=== PATIENT | male | born 1940 | race Caucasian/White ===

== ENCOUNTER → 2020-10-09 | Outpatient (CLI) | payer MEDICARE ==
[~2020-10-09] MED LIST: ASPI81CH; CODLIVC; Cayenne450 MG; FISH1000; Garlic Oil1000 MG; NAPR500 PO; Saw Palmetto500 MG; Vitamin C100 M1
== END | disposition home or self-care (01) ==
LOC: LAB 12:05 → LAB SHORT 12:05
DX: C44.329 Squamous cell carcinoma of skin of other parts of face (principal)
CPT/HCPCS: 88305

== ENCOUNTER → 2021-04-17 | Outpatient (CLI) | payer MEDICARE | END | disposition home or self-care (01) | LOC: LAB 12:01 → LAB SHORT 12:01 | DX: C44.222 Squamous cell carcinoma of skin of right ear and external auricular canal (principal) | CPT/HCPCS: 88305 ==

== ENCOUNTER → 2021-08-26 | Outpatient (CLI) | payer MEDICARE | END | disposition home or self-care (01) | LOC: LAB SHORT 08:11 | DX: C44.229 Squamous cell carcinoma of skin of left ear and external auricular canal (principal) | CPT/HCPCS: 88305 ==

== ENCOUNTER → 2022-01-07 | Outpatient (CLI) | payer MEDICARE | END | disposition home or self-care (01) | LOC: PLD 08:27 → LAB SHORT 08:27 | DX: L91.0 Hypertrophic scar (principal) | CPT/HCPCS: 88305 ==

== ENCOUNTER → 2023-03-24 | Outpatient (CLI) | payer MEDICARE | END | disposition home or self-care (01) | LOC: PLD 13:28 → LAB SHORT 13:28 | DX: C44.41 Basal cell carcinoma of skin of scalp and neck (principal); D49.2 Neoplasm of unspecified behavior of bone, soft tissue, and skin | CPT/HCPCS: 88305 ==

== ENCOUNTER → 2023-09-09 | Outpatient (CLI) | payer MEDICARE | LOC: LAB SHORT 12:39 → LAB 12:39 | DX: C44.319 Basal cell carcinoma of skin of other parts of face (principal) | CPT/HCPCS: 88305 ==

== ENCOUNTER → 2023-12-07 | Outpatient (CLI) | payer MEDICARE | LOC: LAB SHORT 12:45 → LAB 12:45 | DX: C44.219 Basal cell carcinoma of skin of left ear and external auricular canal (principal) | CPT/HCPCS: 88305 ==

== ENCOUNTER 2024-12-01 17:48 | Emergency (ER) | payer MEDICARE ==
[~2024-12-01] VITALS: Ht 167.6 cm; Wt 68.0 kg
[~2024-12-01 17:48] MED LIST changes: -Amoxicillin875 MG PO; -LOPE2C PO
[2024-12-01] MEDS ORDERED: Ondansetron HCl 2 MG / ML 2ML Vial IV ONE (19:05)
[2024-12-01] MEDS ORDERED: NS 1,000 ML IV SCH (20:25)
[2024-12-01 20:35] LABS: BASOPHILS ABSOLUTE AUTO 0.01 K/mm3 (0.00-0.23); BASOPHILS PERCENT AUTO 0 % (0-2); EOSINOPHILS ABSOLUTE AUTO 0.05 K/mm3 (0.00-0.68); EOSINOPHILS PERCENT AUTO 0 % (0-6); Hematocrit 40.3 % (37.0-53.0); Hemoglobin 13.6 g/dL (13.5-17.5); IMMATURE GRAN ABSOLUTE AUTO 0.69 K/mm3 (0.00-0.10); IMMATURE GRAN PERCENT AUTO 6 % (0-1); LYMPHOCYTES ABSOLUTE AUTO 1.02 K/mm3 (0.84-5.20); LYMPHOCYTES PERCENT AUTO 9 % (21-46); MONOCYTES ABSOLUTE AUTO 1.96 K/mm3 (0.16-1.47); MONOCYTES PERCENT AUTO 17 % (4-13); Mean Corpuscular HGB 31.1 pg (26.0-34.0); Mean Corpuscular HGB Conc 33.7 g/dL (31.5-36.5); Mean Corpuscular Volume 92 fL (80-100); NEUTROPHILS ABSOLUTE AUTO 7.98 K/mm3 (1.96-9.15); NEUTROPHILS PERCENT AUTO 68 % (41-73); Platelet Count 139 K/mm3 (150-400); RDW Coefficient Variation 13.5 % (11.7-14.2); RDW Standard Deviation 45.1 fL (35.1-46.3); Red Blood Cell Count 4.37 M/mm3 (4.30-5.90); White Blood Cell Count 11.71 K/mm3 (4.00-11.30)
[2024-12-01 20:51] LABS: Source, Urine Voided
[2024-12-01 20:55] LABS: Appearance, Urine Clear (Clear); Bilirubin, Urine Neg (Neg); Blood, Urine 2+ (Neg); Color, Urine Yellow (P-Yellow); Glucose Qualitative, Urine Neg (Neg); Ketones, Urine Neg (Neg); Leukocyte Esterase, Urine Neg (Neg); Nitrite, Urine Neg (Neg); Protein, Urine 2+ (Neg); Urobilinogen, Urine NORM (Normal)
[2024-12-01 21:00] LABS: CORONAVIRUS COVID-19 AG Negative (NEGATIVE); INFLUENZA A AG Negative (NEGATIVE); INFLUENZA B AG Negative (NEGATIVE)
[2024-12-01 21:01] LABS: Amorphous Light (0-Heavy); Bacteria Not Seen /hpf; Mucus Light (0-Heavy); Red Blood Cells, Urine 0-2 /hpf (0-2); Squamous Epithelial Cells Not Seen /hpf (Few); White Blood Cells, Urine Not Seen /hpf (0-5)
[2024-12-01 21:08] LABS: Albumin, Blood 2.8 g/dL (3.4-5.0); Bilirubin, Total 0.6 mg/dL (0.1-1.0); Bun/Creatinine Ratio 26.5 (12.0-20.0); Calcium, Blood 7.1 mg/dL (8.5-10.1); Creatinine, Blood 1.32 mg/dL (0.60-1.20); Globulin, Blood 2.8 g/dL (2.2-4.0); Potassium, Blood 3.4 mmol/L (3.5-5.5); Total Protein, Blood 5.6 g/dL (6.4-8.2)
[2024-12-01] MEDS ORDERED: Amoxicillin 875 MG Tab PO ONE (21:20)
[2024-12-01 22:00] VITALS: BP 134/60
[2024-12-01] MEDS ORDERED: Amoxicillin875 MG PO (22:04)
[2024-12-01] MEDS ORDERED: LOPE2C PO (22:04)
== END 2024-12-01 22:14 | disposition home or self-care (01) ==
LOC: ER 17:48
PROVIDERS: Emergency Medicine
DX: J18.9 Pneumonia, unspecified organism (principal); R19.7 Diarrhea, unspecified; E86.0 Dehydration; Z79.1 Long term (current) use of non-steroidal anti-inflammatories (NSAID); Z79.51 Long term (current) use of inhaled steroids; Z79.899 Other long term (current) drug therapy; Z79.891 Long term (current) use of opiate analgesic; Z79.83 Long term (current) use of bisphosphonates; Z79.84 Long term (current) use of oral hypoglycemic drugs; R50.9 Fever, unspecified
CPT/HCPCS: 71045; 80053; 81001; 83605; 83735; 84484; 85025; 87428-QW; 93005; 93010; 96360; 99285-25; A9270; J2405; J7030

== ENCOUNTER → 2024-12-01 | Outpatient (CLI) | payer MEDICARE ==
[~2024-12-01] MED LIST changes: +Amoxicillin875 MG PO; +LOPE2C PO
[2024-12-01 15:42] LABS: BASOPHILS ABSOLUTE AUTO 0.01 K/mm3 (0.00-0.23); BASOPHILS PERCENT AUTO 0 % (0-2); EOSINOPHILS ABSOLUTE AUTO 0.02 K/mm3 (0.00-0.68); EOSINOPHILS PERCENT AUTO 0 % (0-6); Hematocrit 44.9 % (37.0-53.0); Hemoglobin 15.3 g/dL (13.5-17.5); IMMATURE GRAN ABSOLUTE AUTO 0.82 K/mm3 (0.00-0.10); IMMATURE GRAN PERCENT AUTO 7 % (0-1); LYMPHOCYTES PERCENT AUTO 6 % (21-46); MONOCYTES ABSOLUTE AUTO 1.85 K/mm3 (0.16-1.47); MONOCYTES PERCENT AUTO 16 % (4-13); Mean Corpuscular HGB 30.8 pg (26.0-34.0); Mean Corpuscular HGB Conc 34.1 g/dL (31.5-36.5); Mean Corpuscular Volume 90 fL (80-100); Mean Platelet Volume 10.4 fL (9.1-12.4); NEUTROPHILS ABSOLUTE AUTO 8.39 K/mm3 (1.96-9.15); NEUTROPHILS PERCENT AUTO 71 % (41-73); Platelet Count 208 K/mm3 (150-400); RDW Coefficient Variation 13.4 % (11.7-14.2); RDW Standard Deviation 44.3 fL (35.1-46.3); Red Blood Cell Count 4.97 M/mm3 (4.30-5.90); White Blood Cell Count 11.79 K/mm3 (4.00-11.30)
[2024-12-01 15:51] LABS: Albumin, Blood 3.4 g/dL (3.4-5.0); Albumin/Globulin Ratio 1.1 (0.8-1.8); Bilirubin, Total 0.7 mg/dL (0.1-1.0); Bun/Creatinine Ratio 19.8 (12.0-20.0); Creatinine, Blood 2.12 mg/dL (0.60-1.20); Globulin, Blood 3.2 g/dL (2.2-4.0); Magnesium, Blood 1.7 mg/dL (1.6-2.4); Potassium, Blood 3.3 mmol/L (3.5-5.5); Total Protein, Blood 6.6 g/dL (6.4-8.2)
== END ==
LOC: LAB SHORT 15:34 → LAB 15:34
PROVIDERS: Physician Assistant
DX: R19.7 Diarrhea, unspecified (principal); R50.9 Fever, unspecified
CPT/HCPCS: 80053; 83605; 83735; 85025

== ENCOUNTER 2025-03-22 12:29 | Inpatient (IN) | payer MEDICARE, OTHER ==
[~2025-03-22] VITALS: Ht 167.6 cm; Wt 61.7 kg
[~2025-03-22 12:29] MED LIST changes: +Amoxicillin875 MG PO; +LOPE2C PO
[2025-03-22] MEDS ORDERED: LISINOPRIL-HCT1 EACH PO (12:46)
[2025-03-22] MEDS ORDERED: AMLODIPINE BESYL5 MG PO (12:46)
[2025-03-22] MEDS ORDERED: ROSUVASTATIN CA20 MG PO (12:47)
[2025-03-22 15:29] LABS: Anti-Xa UFH, PHA Monitoring <0.10 IU/mL; Prothrombin Time Results 11.4 Sec (9.7-11.5)
[2025-03-22 15:49] VITALS: BP 168/75
[2025-03-22] MEDS ORDERED: Heparin Sodium,Porcine/0.5 NS 500 ML IV SCH (16:00)
[2025-03-22] MEDS ORDERED: Heparin Sodium 5000 Units/ML 1ML MDV IV ONE (16:00)
[2025-03-22 19:26] VITALS: BP 103/59
[2025-03-22] MEDS ORDERED: Insulin Human Lispro 100 Units/ML 3ML Syringe SC SCH (21:00)
[2025-03-22 23:32] VITALS: BP 117/69
[2025-03-23 01:04] LABS: Hematocrit 46.8 % (37.0-53.0); Hemoglobin 15.6 g/dL (13.5-17.5); Mean Corpuscular HGB Conc 33.3 g/dL (31.5-36.5); Mean Corpuscular Volume 92 fL (80-100); NRBC ABSOLUTE 0.00 K/mm3 (0.00-0.02); NRBC Auto 0.0 /100 WBC (0.0-0.2); Platelet Count 232 K/mm3 (150-400); RDW Coefficient Variation 13.3 % (11.7-14.2); RDW Standard Deviation 44.7 fL (35.1-46.3)
[2025-03-23 01:27] LABS: Alanine Aminotransfer (ALT/SGP 27.0 U/L (12-78); Albumin, Blood 3.6 g/dL (3.4-5.0); Albumin/Globulin Ratio 1.2 (0.8-1.8); Anion Gap 7.0 mmol/L (3-11); Aspartate Aminotrans (AST/SGOT 22.0 U/L (12-37); BAND PERCENT MAN 4 % (0-8); BASOPHILS ABSOLUTE MAN 0.00 K/mm3 (0.00-0.23); BASOPHILS PERCENT MAN 0 % (0-2); Bilirubin, Total 0.5 mg/dL (0.1-1.0); Blood Urea Nitrogen 27.0 mg/dL (8-24); CO2, Blood 29.0 mmol/L (21-32); Calcium, Blood 8.5 mg/dL (8.5-10.1); Chloride, Blood 105.0 mmol/L (98-108); Creatinine, Blood 1.16 mg/dL (0.60-1.20); EOSINOPHILS ABSOLUTE MAN 0.00 K/mm3 (0.00-0.68); EOSINOPHILS PERCENT MAN 0 % (0-6); Globulin, Blood 3.1 g/dL (2.2-4.0); Glucose, Blood 83.0 mg/dL (70-99); LYMPHOCYTES ABSOLUTE MAN 2.16 K/mm3 (0.84-5.20); LYMPHOCYTES PERCENT MAN 42 % (21-46); MONOCYTES ABSOLUTE MAN 0.51 K/mm3 (0.16-1.47); MONOCYTES PERCENT MAN 10 % (4-13); NEUTROPHILS ABSOLUTE MAN 2.47 K/mm3 (1.96-9.15); Potassium, Blood 3.7 mmol/L (3.5-5.5); SEG NEUTROPHILS PERCENT MAN 44 % (41-73); Sodium, Blood 137.0 mmol/L (136-145); Total Protein, Blood 6.7 g/dL (6.4-8.2)
[2025-03-23] MEDS ORDERED: Clarify Drug Order XX ONE (02:10)
[2025-03-23 03:12] VITALS: BP 122/69
--- NOTE | 2025-03-23 05:49 | NUR ---
SHIFT SUMMARY PT ALERT AND ORIENTED X4. PT SB ON MONITOR. HR WILL BE 46-48 WHEN RESTING. PT ASYMPTOMATIC. MD RADHA AWARE. PT WILL BE IN 50S WITH ACTIVITY. PT STATES HIS HR IS NORMALLY LOW. PT DENIES CP/PRESSURE. PT ON RA WITH O2 SATS ABOVE 90%,. HEP GTT INFUSING. PT NPO FOR POTENTIALLY PROCEDURE DEPENDING ON CARDIOLOGY RECS. PT DENIES PAIN. CALL BALDWIN WITHIN REACH AND ABLE TO MAKE NEEDS KNOWN. VSS.
--- NOTE | 2025-03-23 06:19 | NUR ---
PT TROPONIN PEAKED AT 681. CURRENT TROPONIN IS 624. MD RADHA AWARE. TROPONIN LAB SCHEDULED FOR 2199. NO ORDERS OF NOW TO RECHECK SOONER THAN THAT. PT STILL DENIES CP/PRESSURE. VSS.
[2025-03-23 07:50] VITALS: BP 122/77
[2025-03-23] MEDS ORDERED: Dose Adjust by Pharmacy XX STA (08:01)
[2025-03-23 11:48] VITALS: BP 129/67
[2025-03-23] MEDS ORDERED: Verapamil HCL 2.5 MG/ML 2ML Injection ONE (13:34)
[2025-03-23] MEDS ORDERED: Nitroglycerin 2 MG/20 ML BTL ONE (13:35)
[2025-03-23] MEDS ORDERED: NS 250 ML IV ONE ×2 (13:35→15:39)
[2025-03-23] MEDS ORDERED: NS 1,000 ML IV ONE ×2 (13:35→13:38)
[2025-03-23] MEDS ORDERED: Midazolam HCl 1MG / ML 2ML Vial ONE (13:38)
[2025-03-23] MEDS ORDERED: FentaNYL Citrate 50 MCG/ML 2 ML Injection ONE (13:38)
[2025-03-23] MEDS ORDERED: Heparin Sodium 1000 Units/ML 10ML MDV ONE (14:48)
[2025-03-23] MEDS ORDERED: Phenylephrine HCl 100 MCG/ML-NS 10MLSYR (1MG/10ML) ONE (14:50)
[2025-03-23 16:28] VITALS: BP 139/74
--- NOTE | 2025-03-23 17:29 | NUR ---
UPDATE PT DOWN TO FINE GRADER AROUND 1500. PT RETURNED FROM FINE GRADER AT 1615 VIA HOSITAL BED AND ON RA. TR BAND ON RIGHT RADIAL SITE, SITE C/D/I. NO HEMATOMA, BLEEDING OR TENDERNESS NOTED. PT SISTER UPDATED OF PT ARRIVAL TO UNIT AGAIN PER PT REQUEST. BODILY INJURY ADJUSTER CONTACTED ABOUT HEPARIN. HEPARIN TO START 5 HRS AFTER TR BAND RECOVERED.
--- NOTE | 2025-03-23 17:52 | NUR ---
SHIFT SUMMARY PT A/OX4 AND COOEPRATIVE OF CARE. PT ABLE TO EXPRESS NEEDS AND CALLS APPROIATE. PT VSS THROUGHOUT SHIFT WITH O2 SATS IN THE 90'S ON RA. PT DENIED CHEST PAIN/PRESSURE THROUGHOUT SHIFT. PT DENIED SOB/DYSPNEA THROUGHOUT SHIFT. PT NPO SINCE MID NIGHT FOR CARDIOLOGY CONSULT, PT SEEN BY CARDIOLOGY AT 0730 AND SIGNED CONSENT FORM FOR ANGIO. PT TO ANGIO ARIO 1500. NO INTERVENTIONS DONE, RECOMMENDED HIGH RISK PCI AT [facility]ILITY. TR BAND IN PLACE TO RIGHT RADIAL SITE, C/D/I. HEP GTT TO BE RESTARTED 5 HRS AFTER TR BAND IS RECOVERED.
[2025-03-23 19:40] VITALS: BP 122/68
--- NOTE | 2025-03-23 19:51 | NUR ---
CARE ASSUMPTION PT A&OX4, ABLE TO MAKE NEEDS KNOWN. VSS. SP02>90% ON RA. TELEMETRY SHOWS SBR/NSR, HR 50'S-60'S. TR BAND ON R RADIAL. SMALL HEMATOMA, OUTLINED WITH SKIN MARKER. PRESSURE HELD. 2MLS REMOVED DURING BEDSIDE SHIFT REPORT. CURRENTLY JSUT REMOVED 2MLS MORE. NO BLEEDING NOTED. HEMATOMA APPEARS UNCHANGED. ARM BOARD IN PLACE. PT REPORTS LARGE BM THIS EVENING. CALL LIGHT IN REACH.
--- NOTE | 2025-03-23 22:10 | NUR ---
UPDATE TR BAND FULLY DEFLATED AT THIS TIME. HEMATOMA NOTED, OUTLINED IN SKIN MARKER, REMAINS UNCHANGED. UPON ENTERING ROOM, ARM BOARD WAS REMOVED AND ON BEDSIDE TABLE. PT STATES HE TOOK IT OFF BECAUSE "IT WASNT DOING ANYTHING". PT EDUCATED ON PURPOSE OF ARM BOARD AND ARM BOARD REPLACED.
[2025-03-24 00:19] VITALS: BP 125/74
[2025-03-24 02:09] LABS: Hematocrit 52.3 % (37.0-53.0); Hemoglobin 17.6 g/dL (13.5-17.5); Mean Corpuscular HGB Conc 33.7 g/dL (31.5-36.5); Mean Corpuscular Volume 91 fL (80-100); NRBC ABSOLUTE 0.00 K/mm3 (0.00-0.02); NRBC Auto 0.0 /100 WBC (0.0-0.2); Platelet Count 276 K/mm3 (150-400); RDW Coefficient Variation 13.6 % (11.7-14.2); RDW Standard Deviation 45.1 fL (35.1-46.3)
[2025-03-24 02:29] LABS: Anion Gap 9.0 mmol/L (3-11); Blood Urea Nitrogen 28.0 mg/dL (8-24); CO2, Blood 26.0 mmol/L (21-32); Calcium, Blood 8.9 mg/dL (8.5-10.1); Chloride, Blood 103.0 mmol/L (98-108); Creatinine, Blood 1.08 mg/dL (0.60-1.20); Glucose, Blood 76.0 mg/dL (70-99); Potassium, Blood 4.0 mmol/L (3.5-5.5); Sodium, Blood 134.0 mmol/L (136-145)
[2025-03-24 02:45] LABS: BAND PERCENT MAN 9 % (0-8); BASOPHILS ABSOLUTE MAN 0.00 K/mm3 (0.00-0.23); BASOPHILS PERCENT MAN 0 % (0-2); EOSINOPHILS ABSOLUTE MAN 0.00 K/mm3 (0.00-0.68); EOSINOPHILS PERCENT MAN 0 % (0-6); LYMPHOCYTES ABSOLUTE MAN 2.22 K/mm3 (0.84-5.20); LYMPHOCYTES PERCENT MAN 32 % (21-46); MONOCYTES ABSOLUTE MAN 1.31 K/mm3 (0.16-1.47); MONOCYTES PERCENT MAN 19 % (4-13); NEUTROPHILS ABSOLUTE MAN 3.40 K/mm3 (1.96-9.15); SEG NEUTROPHILS PERCENT MAN 40 % (41-73)
[2025-03-24 04:12] VITALS: BP 118/70
--- NOTE | 2025-03-24 04:21 | NUR ---
SHIFT SUMMARY NO ACUTE CHANGES SINCE CARE ASSUMPTION. VSS. TR BAND REMOVED, OPSITE IN PLACE, BRUISING NOTED. ARM BOARD IN PLACE. PT DENIES PAIN. SLEPT MOST OF NIGHT. UP TO BATHROOM INDEPENDENTLY TO VOID. COMMUNICATED W/ PHARMACY, PER CK NOTE, HEP GTT TO BE RESTARTED 5 HRS AFTER TR BAND REMOVED. CALL LIGHT IN REACH.
[2025-03-24 07:40] VITALS: BP 124/71
[2025-03-24 11:22] VITALS: BP 152/78
[2025-03-24] MEDS ORDERED: Dose Adjust by Pharmacy XX STA (11:28)
[2025-03-24] MEDS ORDERED: ATOR80 PO (12:06)
--- NOTE | 2025-03-24 12:49 | NUR ---
DISCHARGE UPDATE DISCHARGE PACKET GONE OVER WITH PT AND PT SISTER AT 1230. PT DISCHARGED AT 1245. PT PERSONAL BELONGINGS WITH PT AT TIME OF DISCHARGE ALONG WITH DISCHARGE PACKET. PT DECLINED WHEELCHAIR FOR DISCHARGE AND WALKED TO SISTER CAR.
== END 2025-03-24 12:45 | disposition home or self-care (01) | DRG 282 ==
LOC: ER 12:29 → ERHOLD 14:35 → PCU 14:35 → ER 14:45 → ERHOLD 14:45 → PCU 15:45
PROVIDERS: ADMIT Internal Medicine
PROC: B2111ZZ Fluoroscopy of Multiple Coronary Arteries using Low Osmolar Contrast (ICD-10-PCS; principal; 2025-03-23)
PROC: 4A023N7 Measurement of Cardiac Sampling and Pressure, Left Heart, Percutaneous Approach (ICD-10-PCS; 2025-03-23)
PROC: B2111ZZ Fluoroscopy of Multiple Coronary Arteries using Low Osmolar Contrast (ICD-10-PCS; 2025-03-23)
PROC: 4A033BC Measurement of Arterial Pressure, Coronary, Percutaneous Approach (ICD-10-PCS; 2025-03-23)
DX: I21.4 Non-ST elevation (NSTEMI) myocardial infarction (principal); I25.10 Atherosclerotic heart disease of native coronary artery without angina pectoris; I10 Essential (primary) hypertension; E11.9 Type 2 diabetes mellitus without complications; F17.220 Nicotine dependence, chewing tobacco, uncomplicated; I25.84 Coronary atherosclerosis due to calcified coronary lesion; R07.89 Other chest pain; Z66 Do not resuscitate; Z96.1 Presence of intraocular lens; Z79.82 Long term (current) use of aspirin
CPT/HCPCS: 36415; 76937; 80048; 80053; 82947; 84484; 85025; 85347; 85520; 85610; 85730; 92920; 93005; 93010; 93306; 93454; 93458; 93571; 93572; 99152; 99153; 99285-25; A9270; C1725; C1769; C1887; C1894; J0461; J1644; J2250; J2371; J3010; J7030; J7050; Q9967

== ENCOUNTER → 2025-07-19 | Outpatient (CLI) | payer MEDICARE ==
[~2025-07-19] MED LIST changes: +AMLODIPINE BESYL5 MG PO; +ATOR80 PO; +LISINOPRIL-HCT1 EACH PO; +ROSUVASTATIN CA20 MG PO
== END ==
LOC: LAB SHORT 12:05 → LAB 12:05
DX: R39.15 Urgency of urination (principal)
CPT/HCPCS: 87077; 87086; 87186